=== PATIENT | female | born 1995 | race Two or more races ===

== ENCOUNTER 2017-01-28 21:21 | Emergency (ER) | payer MEDICAID ==
[~2017-01-28] VITALS: Ht 154.9 cm; Wt 66.5 kg
[2017-01-28 21:25] VITALS: BP 115/70
[2017-01-28] MEDS ORDERED: CIPROFLOXACIN OPHTH SOLN 0.3%, 5ML LEFTEYE SCH (22:00)
[2017-01-28 22:33] LABS: BLOOD UREA NITROGEN 11 mg/dL (7-18)
== END 2017-01-28 23:03 | disposition home or self-care (01) ==
LOC: ED 22:57
DX: R30.0 Dysuria (principal); F15.10 Other stimulant abuse, uncomplicated
CPT/HCPCS: 36415; 80048; 81001; 82040; 85025; 87077; 87086; 87186; 99284